=== PATIENT | male | born 1930 | race Caucasian/White ===

== ENCOUNTER 2016-12-20 09:45 | Emergency (ER) | payer MEDICARE, OTHER ==
--- NOTE | 2016-12-20 23:48 | RAD ---
RIGHT RIBS PA CHEST: Date: 12-20-16 FINDINGS: A PA film of the chest shows a normal sized heart and no mediastinal widening or shift. The lungs ar e clear except for some right basilar atelectasis. Films of the ribs reveal fractures of the right 8 th, 9th and 10th ribs near their distal ends. No pneumothorax was seen. Calcification is seen in the aortic arch. IMPRESSION: Fractures of the 8th, 9th, and 10th ribs laterally on the right side. POS: HOME
== END 2016-12-20 10:51 | disposition home or self-care (01) ==
LOC: BURERS 09:45
DX: S22.41XA Multiple fractures of ribs, right side, initial encounter for closed fracture (principal); I10 Essential (primary) hypertension; E78.00 Pure hypercholesterolemia, unspecified; E11.9 Type 2 diabetes mellitus without complications; M85.80 Other specified disorders of bone density and structure, unspecified site; W18.2XXA Fall in (into) shower or empty bathtub, initial encounter